=== PATIENT | female | born 1950 | race Caucasian/White ===

== ENCOUNTER 2017-09-20 11:06 | Emergency (ER) | payer MEDICARE ==
[2017-09-20 11:49] VITALS: BP 113/84
--- NOTE | 2017-09-20 12:15 | UC ---
General HPI - HPI Summary HPI Summary: Patient presents with a 2 family members. They're visiting from [place]. They' re going home today at 5:30. 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 This diagnosis was made on biopsy by her oral surgeon. She is complaining of having a flare for several days now. She states that she was treated with a 3 week course of oral steroids by her oral surgeon which she completed 10 days ago without any relief. She is complaining of burning to her mouth from the multiple ulcerations as well a splitting ulceration to her lip. In addition to the oral steroid she is tried self treated with [id number] Vaseline, Neosporin and peroxide. She has also been treated with a swish and spit solution without any relief. Patient is also reporting some fatigue and chills with this flare in her mouth. She has a mild cough but notes that it is chronic and occurs in the morning only and then resolves. She has no short of breath vomiting diarrhea or dysuria and has no other complaints. - History of Current Complaint Chief Complaint: UCDentalProblem Stated Complaint: ORAL COMPLAINT Time Seen by Provider: 09/20/17 11:39 Hx Obtained From: Patient, Family/Partner Onset/Duration: Gradual Onset Timing: Constant Pain Intensity: 10 Aggravating: food Alleviating: nothing Associated Signs & Symptoms: Positive: Cough - chronic with no change, Fever. Negative: Diarrhea, Dysuria, SOB, Wheezing, Weakness - Allergy/Home Medications Allergies/Adverse Reactions: Allergies Allergy/AdvReac Type Severity Reaction Status Date / Time No Known Allergies Allergy Verified 09/20/17 11:46 Home Medications: Home Medications traMADol TAB* [Ultram*] 50 mg PO Q6HR PRN 09/20/17 [History Confirmed 09/20/17] PMH/Surg Hx/FS Hx/Imm Hx - Additional Past Medical History Additional PMH: oral Lichen Planus, "autoimmune disorder" - Surgical History Surgery Procedure, Year, and Place: gall bladder - Family History Known Family History: Positive: None - Social History Occupation: Retired Lives: With Family Alcohol Use: None Substance Use Type: None Smoking Status (MU): Never Smoked Tobacco - Immunization History Vaccination Up to Date: Yes Review of Systems Constitutional: Fever - ?, Chills, Fatigue Skin: Negative Eyes: Negative ENT: Other - mouth/lip ulcerations Respiratory: Cough - chronic Cardiovascular: Negative Gastrointestinal: Negative Genitourinary: Negative Motor: Negative Neurovascular: Negative Musculoskeletal: Negative Neurological: Negative Psychological: Negative Is Patient Immunocompromised?: No All Other Systems Reviewed And Are Negative: Yes Physical Exam Triage Information Reviewed: Yes Appearance: Well-Appearing Vital Signs: Initial Vital Signs Temp 98.1 F 09/20/17 11:40 Pulse 90 09/20/17 11:40 Resp 15 09/20/17 11:40 BP 113/84 09/20/17 11:40 Pulse Ox 100 09/20/17 11:40 Vital Signs Reviewed: Yes Eyes: Positive: Conjunctiva Clear ENT: Positive: TMs normal, Other - Patient has ulceration to her lower lip with a small amount of dried blood. Posterior pharynx has some slight erythema. There is extensive ulcerations to her buccal mucosa and right lower gum area as well as inside the lower lip. There are no exudates. There is some questionable DK to the right lower molars. There are no areas of fluctuance. The uvula is midline. Patient is able to speak and swallow her secretions without difficulty. There is no pre-or postauricular adenopathy. There is no cervical adenopathy. There is some mild malodor to the patient's breath.. Negative: Nasal congestion, Nasal drainage Neck: Positive: Supple Respiratory: Positive: Lungs clear, Normal breath sounds Cardiovascular: Positive: RRR, No Murmur Abdomen Description: Positive: Nontender, No Organomegaly, Soft Bowel Sounds: Positive: Present Musculoskeletal: Positive: ROM Intact Neurological: Positive: Alert Psychological: Positive: Age Appropriate Behavior Skin Exam: Normal Course/Dx - Course Course Of Treatment: Patient's history and physical exam are consistent with an acute flare of her chronic oral like an planus. There is concern for secondary bacterial infection given her subjective chills, oral exam and malodor to her breath/mouth. Patient has failed multiple attempts at treatment of her mouth discomfort from the chronic ulcers. She has never tried Carafate. I'm going to write her for Carafate solution which she may swish and spit or swallow. In addition, I am going to cover her with amoxicillin 4 day feel is likely a secondary infection as well. She is flying home to [place] this evening and agrees to follow up with her primary care in [place] tomorrow. - Differential Dx - Multi-Symptom Provider Diagnoses: Acute flare of chronic oral lichen planus. Oral infection. Discharge - Sign-Out/Discharge Documenting (check all that apply): Discharge/Admit/Transfer - Discharge Plan Condition: Stable Disposition: HOME Prescriptions: Amoxicillin PO (*) [Amoxicillin 875 MG (*)] 875 mg PO BID #14 tab Sucralfate SUSP (NF) [Carafate SUSP (NF)] 10 ml PO Q6HR 3 Days #1 bottle Patient Education Materials: Gingivostomatitis (ED) Referrals: Non Staff,Doctor [Primary Care Provider] - Additional Instructions: FOLLOW UP WITH YOUR PRIMARY CARE IN [place] TOMORROW DIAGNOSIS: ACUTE FLARE OF CHRONIC LICHEN PLANUS. SECONDARY ORAL INFECTION. - Billing Disposition and Condition Condition: STABLE Disposition: Home
== END 2017-09-20 12:21 | disposition home or self-care (01) ==
LOC: UCCORT 11:06
DX: L43.9 Lichen planus, unspecified (principal); K13.70 Unspecified lesions of oral mucosa
CPT/HCPCS: 99202; G0463